=== PATIENT | male | born 1980 | race Caucasian/White ===

== ENCOUNTER 2016-05-09 21:40 | Emergency (ER) | payer SELFPAY ==
[2016-05-10] MEDS ORDERED: ALU/MAG/SIM 30 ML UDC ONE (00:15)
[2016-05-10] MEDS ORDERED: LIDOCAINE 2% VISC 15 ML UDC ONE (00:15)
== END 2016-05-10 01:13 | disposition home or self-care (01) ==
LOC: ER 21:40
CPT/HCPCS: 36415; 71020; 84484; 85379; 93005